=== PATIENT | female | born 1970 | race Caucasian/White ===

== ENCOUNTER 2016-08-09 23:34 | Emergency (ER) | payer SELFPAY ==
[2016-08-10 00:30] LABS: ABSOLUTE NEUTROPHIL COUNT 5.3 K/mm3 (1.8-7.7); BASO % 0.4 % (0.2-1.0); EOS # 0.1 (0.0-0.5); EOS % 0.9 % (0.9-2.9); HEMATOCRIT 34.1 % (37.0-47.0); HEMOGLOBIN 10.3 gm/l (12.0-16.0); IMM NEUT% 0.3 % (0-1); LYMPH # 3.7 (1.0-4.8); LYMPH % 37.7 % (15-45); MEAN CELL VOLUME 79.5 fl (81.0-99.0); MEAN CORPUSCULAR HGB CONC 30.2 g/dl (33.0-37.0); MEAN PLATELET VOLUME 10.8 fl (7.4-10.4); MONO # 0.7 (0.0-0.8); MONO % 7.5 % (4-12); NEUT % 53.2 % (43-75); PLATELET COUNT 279 K/mm3 (130-400); RED CELL DISTRIBUTION WIDTH 16.9 % (11.5-14.5)
[2016-08-10] MEDS ORDERED: ASPIRIN (ENTERIC COATED) 325 MG TABLET.EC PO ONE (00:35)
[2016-08-10] MEDS ORDERED: KETOROLAC TROMETHAMINE 30 MG/ML 1 ML VIAL ONE (00:35)
[2016-08-10 00:43] LABS: ALB/GLOB RATIO 1.2 (>1.0); CALCIUM 9.3 mg/dL (8.6-10.3); TROPONIN I < 0.01 ng/ml (0.0-0.06)
[2016-08-10 00:46] LABS: CKMB ISOENZYME 1.1 ng/ml (0.6-6.3)
--- NOTE | 2016-08-10 07:01 | RAD ---
History: Chest pain. Comparison: None. Technique: 2 views Findings: The soft tissue and bony structures are unremarkable. The heart size is appropriate. No infiltrate, effusion or pneumothorax is observed. The hilar and mediastinal structures are normal. Impression: 1. A negative 2 view chest
== END 2016-08-10 01:34 | disposition home or self-care (01) ==
LOC: ED 23:34
DX: S29.011A Strain of muscle and tendon of front wall of thorax, initial encounter (principal); R07.89 Other chest pain; E03.9 Hypothyroidism, unspecified; C49.9 Malignant neoplasm of connective and soft tissue, unspecified; X58.XXXA Exposure to other specified factors, initial encounter; Y93.F9 Activity, other caregiving; Y92.9 Unspecified place or not applicable; Y99.0 Civilian activity done for income or pay